=== PATIENT | female | born 1950 | race Caucasian/White ===

== ENCOUNTER 2023-11-24 16:21 | Emergency (ER) | payer MEDICARE, SELFPAY ==
[2023-11-24 16:24] VITALS: BP 171/77
[2023-11-24 16:43] LABS: % Basophils 0.8 % (0-2); % Eosinophils 3.4 % (0-6); % Immature Granulocytes 0.3 % (0-0.5); % Lymphocytes 33.2 % (20.5-51.1); % Monocytes 10.6 % (1.7-9.3); % Neutrophils 51.7 % (42.2-75.2); Absolute Basophils 0.1 10^3/uL (0-0.2); Absolute Eosinophils 0.3 10^3/uL (0-0.7); Absolute Lymphocytes 2.5 10^3/uL (1.2-3.4); Absolute Monocytes 0.8 10^3/uL (0.1-0.6); Absolute Neutrophils 3.9 10^3/uL (1.4-6.5); Hematocrit 39.2 % (37.0-47.0); Hemoglobin 13.9 g/dL (12.0-16.0); Mean Corp Hgb Conc. 35.5 g/dL (33.0-37.0); Mean Corpuscular Hgb 30.3 pg (27.0-31.0); Mean Corpuscular Volume 85.4 fL (81.0-99.0); Mean Platelet Volume 9.8 fL (7.4-10.4); Nucleated Red Blood Cells % 0 %; Platelet Count 271 10^3/uL (130-400); Red Blood Cell Count 4.59 10^6/uL (4.20-5.40); Red Cell Dist. Width 13.2 % (11.5-14.5); White Blood Cell Count 7.6 10^3/uL (4.8-10.8)
[2023-11-24 16:57] LABS: ALT (SGPT) 60 U/L (0-35); AST (SGOT) 84 U/L (14-36); Albumin 4.2 g/dl (3.5-5.0); Alkaline Phosphatase 59 U/L (38-126); Blood Urea Nitrogen 27 mg/dl (7-17); Calcium 10.3 mg/dl (8.4-10.2); Carbon Dioxide 24 mmol/L (22-30); Chloride 104 mmol/L (98-107); Glucose 116 mg/dl (70-99); Potassium 3.5 mmol/L (3.5-5.1); Sodium 140 mmol/L (135-145); Total Bilirubin 0.6 mg/dl (0.2-1.3); Total Protein 6.7 g/dl (6.3-8.2); eGFR > 60.00
[2023-11-24 16:59] LABS: INR 0.91; PT 12.3 Sec (11.4-14.6)
[2023-11-24 17:00] LABS: APTT 24.5 Sec (23.4-35.0)
[2023-11-24 17:08] LABS: Troponin I < 0.012 ng/ml
[2023-11-24] MEDS: NSS 500 IV (19:48)
[2023-11-24] MEDS: TORADOL 15 MG IV (19:49)
--- NOTE | 2023-11-24 19:53 | ED.GENMED ---
History of Present Illness
<Laura Casarez PA-C - Last Filed: 11/25/23 00:27>
General
Chief Complaint: Chest Pain
Source: patient
Exam Limitations: none
Time Seen by Provider: 11/24/23 19:06
Nursing documentation reviewed up to this point in time: agreed with
Travel History
Have you had any contact with someone who has COVID-19?: No
Do you have any symptoms of coronavirus? Fever > 100 degrees, chills, cough, shortness of breath, sore throat, loss of taste or smell, muscle aches, or headache?: No
History of Present Illness
History of Present Illness:
see mdm
Review of Systems
<Laura Casarez PA-C - Last Filed: 11/25/23 00:27>
Review of Systems
Allergies reviewed?: Yes
All Other Systems: Not applicable
Phy Exam
<Laura Casarez PA-C - Last Filed: 11/25/23 00:27>
Physical Exam
Physical Exam:
GENERAL: Alert , in no apparent distress, very comfortable
EYE: pupils equal and reactive
NECK: Supple
ENT: o/p clr, mmm.
CARDIAC: Regular rate and rhythm .
LUNGS: Clear breath sounds bilaterally, no acute respiratory distress, no wheezes/rales/rhonchi
ABDOMEN: Soft, RUQ mild tendneress, neg dempsey's mild epigastric tenderness, no r/g, no cvat, normal bowel sounds
NEUROLOGICAL: Alert and oriented, no focal neuro deficits
SKIN: Warm and dry, skin intact.
MUSCULOSKELETAL: No edema, well perfused. neg krissy's sign
PSYCH: Normal and appropriate interaction.
Scores
<Laura Casarez PA-C - Last Filed: 11/25/23 00:27>
Heart Score for Chest Pain Patients
STEMI patient?: No
History: Slightly or Non-Suspicious
ECG: Nonspecific Repolarization
Age: >/= 65 years
Risk Factors: No Risk Factors
Troponin: </= Normal Limit
Heart Score for Chest Pain Patients: 3
Heart Score Risk: 2.5% MACE over next 6 weeks
<Aj Allison DO - Last Filed: 11/25/23 02:20>
Heart Score for Chest Pain Patients
Heart Score for Chest Pain Patients: 3
Heart Score Risk: 2.5% MACE over next 6 weeks
Course
<Laura Casarez PA-C - Last Filed: 11/25/23 00:27>
Orders/Labs/Results
Orders:
Orders
11/24/23 16:26
Electrocardiogram (*1) Urgent
Reason for Study: Chest Pain
EKG- Treatment ONCE
11/24/23 16:36
Complete Blood Count/With Diff Urgent
Comprehensive Metabolic Panel Urgent
Lipase Urgent
Comment: ADD ON
Protime/PTT Urgent
Troponin I Urgent
11/24/23 19:27
0.9% Sodium Chloride 500 ml [Nss] 500 ml IV BOLUS
Ketorolac [Toradol] 15 mg IV NOW STA
US Abdomen Complete/Upper Urgent
Comment:
Reason For Exam: upper abd pain
11/24/23 19:48
Troponin I Urgent
11/24/23 21:56
Add On- LAB Urgent
Tests Added?: lipase
Abnormal Lab Results
11/24/23 11/24/23
16:36 21:38
Absolute Monos (auto) 0.8 H 10^3/uL
(0.1-0.6)
Monocytes % 10.6 H %
(1.7-9.3)
BUN 27 H mg/dl
(7-17)
Creatinine 0.5 L mg/dL
(0.6-1.0)
Glucose 116 H mg/dl
(70-99)
Calcium 10.3 H mg/dl
(8.4-10.2)
AST 84 H U/L
(14-36)
ALT 60 H U/L
(0-35)
POC Glucose 119 H mg/dl
(70-99)
11/24/23 16:36
11/24/23 16:36
Vital Signs
Initial and Last Documented VS:
Initial Vital Signs
Temp Pulse Resp BP Pulse Ox
97.6 F 71 18 171/77 99
11/24/23 16:24 11/24/23 16:24 11/24/23 16:24 11/24/23 16:24 11/24/23 16:24
Last Documented Vital Signs
Temp Pulse Resp BP Pulse Ox
97.6 F 80 16 161/77 96
11/24/23 16:24 11/24/23 23:26 11/24/23 23:26 11/24/23 23:26 11/24/23 23:26
Mounikalt;Aj Allison, DO - Last Filed: 11/25/23 02:20>
Orders/Labs/Results
Orders:
Orders
11/24/23 16:26
Electrocardiogram (*1) Urgent
Reason for Study: Chest Pain
EKG- Treatment ONCE
11/24/23 16:36
Complete Blood Count/With Diff Urgent
Comprehensive Metabolic Panel Urgent
Lipase Urgent
Comment: ADD ON
Protime/PTT Urgent
Troponin I Urgent
11/24/23 19:27
0.9% Sodium Chloride 500 ml [Nss] 500 ml IV BOLUS
Ketorolac [Toradol] 15 mg IV NOW STA
US Abdomen Complete/Upper Urgent
Comment:
Reason For Exam: upper abd pain
11/24/23 19:48
Troponin I Urgent
11/24/23 21:56
Add On- LAB Urgent
Tests Added?: lipase
Abnormal Lab Results
11/24/23 11/24/23
16:36 21:38
Absolute Monos (auto) 0.8 H 10^3/uL
(0.1-0.6)
Monocytes % 10.6 H %
(1.7-9.3)
BUN 27 H mg/dl
(7-17)
Creatinine 0.5 L mg/dL
(0.6-1.0)
Glucose 116 H mg/dl
(70-99)
Calcium 10.3 H mg/dl
(8.4-10.2)
AST 84 H U/L
(14-36)
ALT 60 H U/L
(0-35)
POC Glucose 119 H mg/dl
(70-99)
11/24/23 16:36
11/24/23 16:36
Vital Signs
Initial and Last Documented VS:
Initial Vital Signs
Temp Pulse Resp BP Pulse Ox
97.6 F 71 18 171/77 99
11/24/23 16:24 11/24/23 16:24 11/24/23 16:24 11/24/23 16:24 11/24/23 16:24
Last Documented Vital Signs
Temp Pulse Resp BP Pulse Ox
97.6 F 80 16 161/77 96
11/24/23 16:24 11/24/23 23:26 11/24/23 23:26 11/24/23 23:26 11/24/23 23:26
<Laura Casarez PA-C - Last Filed: 11/25/23 00:27>
MDM/Problems Addressed
Differential Diagnosis Includes:
gasttiris,acs, gallstones, pancreatitis
MDM/Problems Addressed:
pt is a 72 y/o F with h/o hiatal hernia
here with epigastric pain today, she cannot actually recall when it started but believes before 11 am
worse after eatin fatty meal
went to a sewing class and decided to leave as the pain was getting worse
on the way home she drovehere instead because she started worryin gthat she was havin ga heart attack
since being in the Waiting room her pain is much better
slight nausea earlier, no vomiting, fever, pleuritic pain,
while pain was bad, she was feeling sob but she was very anxiosu apparently
pt has ruq tendenress on exam
ekg with t wav inv I, avL, no old to compare
trop x 2 neg
lfts minimally elelvated
lipase normal
wbc normal
us shows gallstones with top normal thickness of gb wall without edema, neg ryhgn2uv sign, cbd is 7.6, still within normal range;
d/w dr. allison
given pt has no sypmtoms now, and is tolerating po fuids, ok to d/c home for outpatient surgery f/u
diet modificiation
if worse, return.
<Laura Casarez PA-C - Last Filed: 11/25/23 00:27>
*Critical Care Note
Total Time (30-74mins, 75-104mins- exclusive of procedures): Not Applicable
ED Attending Note
<Laura Casarez PA-C - Last Filed: 11/25/23 00:27>
-
Portions of this chart may have been created with voice recognition software.� Occasional wrong word or��sound alike� substitutions may have occurred due to the inherent limitations of voice recognition software.
<Aj Allison, - Last Filed: 11/25/23 02:20>
ED Attending Note
I performed the substantive portion of visit, reviewed & personally made and approve the management plan that is documented in note by myself or JARED.: Yes
ED Attending Note:
I have reviewed and agree with history and treatment plan by Ela Casarez. Do not suspect cholecystitis based on ultrasound and labs, as well as patient pain improving. Patient will be discharged follow-up with surgery.
Discharge Plan
Departure
Patient Disposition: Home (Routine Discharge)
Date of Disposition: 11/24/23
Time of Disposition: 22:54
Patient with high blood pressure during this ER visit?: Yes
Condition: Fair
Covid-19: Not Applicable
Discharge Problem:
Cholelithiasis
Instructions: Gallstones (DC), BLOOD PRESSURE
Referrals:
Monty Gary MD [Active] - Follow up in 1 week (SURGERY)
Karime Kilgore MD [Family Provider] -
Activity Restrictions/Additional Instructions:
YOU HAVE GALLSTONES
YOUR LIVER ENZYMES WERE MILDLY ELEVATED BUT THERE WAS NOT ANY SIGN OF A GALLBLADDER INFECTION
YOU COULD HAVE PASSED A GALLSTONE
MAKE SURE TO FOLLOW UP WITH A SURGEON AN OUTPATIENT
TRY DIET MODIFICATION, LOWER FAT DIET TO SEE IF THIS HELPS AVOID 'ATTACKS' OF PAIN
BUT RETURN FOR: FEVER, VOMITING, WORSE PAIN, OR ANY CONCERNS.
IF YOU GET PAIN YOU CAN TAKE MOTRIN NEEDED IF IT IS MILD
Interventions
Interventions:
*Risk Screen - Suicide Last Done: 11/24/23 16:24
*General Assessment Last Done: 11/24/23 16:24
*Neglect/Abuse Screening Last Done: 11/24/23 16:24
ED- Fall Risk Assessment Last Done: 11/24/23 19:44
*ED COVID-19 Vaccine History Last Done: 11/24/23 16:24
*Nursing Disposition Last Done: 11/24/23 23:26
ED- Cardiac Assessment Last Done: 11/24/23 19:44
Discharge Date and Time
Discharge Date/Time: 11/24/23 23:27
[2023-11-24 20:01] VITALS: BP 169/69
[2023-11-24 20:33] LABS: Troponin I < 0.012 ng/ml
[2023-11-24 21:01] VITALS: BP 165/70
[2023-11-24 21:40] LABS: Glucose - Point of Care 119 mg/dl (70-99)
[2023-11-24 22:00] VITALS: BP 159/66
[2023-11-24 22:28] LABS: Lipase 215 U/L (23-300)
[2023-11-24 22:58] VITALS: BP 161/77
[2023-11-24 23:26] VITALS: BP 161/77
== END 2023-11-24 23:27 | disposition home or self-care (01) ==
LOC: EMR 16:21
PROVIDERS: Emergency Medicine; Physician Assistant; EMERGENCY PHYSICIAN Emergency Medicine; FAMILY PHYSICIAN Internal Medicine
DX: K80.20 Calculus of gallbladder without cholecystitis without obstruction (principal); R03.0 Elevated blood-pressure reading, without diagnosis of hypertension
CPT/HCPCS: 99285; 96374; 96361; 76700; 80053; 82962; 83690; 84484; 85025; 85610; 85730; 93005